=== PATIENT | female | born 1990 | race Hispanic/Latino ===

== ENCOUNTER 2020-04-04 21:57 | Emergency (ER) | payer OTHER ==
[~2020-04-04] VITALS: Ht 157.5 cm; Wt 58.5 kg
[2020-04-04] MEDS ORDERED: CYCLOBENZAPRINE HCL 10 MG TAB PO ONE (23:00)
[2020-04-04] MEDS ORDERED: CYCLOBENZAPRINE HCL 10 MG TAB ONE (23:18)
[2020-04-04] MEDS ORDERED: CYCLOBENZAPRINE5 MG PO (23:56)
== END 2020-04-05 00:35 | disposition home or self-care (01) ==
LOC: FSED 22:58
DX: M54.16 Radiculopathy, lumbar region (principal); Z33.1 Pregnant state, incidental
CPT/HCPCS: 81003; 81025; 99283

== ENCOUNTER 2020-12-16 21:47 | Emergency (ER) | payer SELFPAY ==
[~2020-12-16] VITALS: Ht 157.5 cm; Wt 69.4 kg
[~2020-12-16 21:47] MED LIST: CYCLOBENZAPRINE5 MG PO
== END 2020-12-16 22:25 | disposition home or self-care (01) ==
LOC: FSED 22:19
DX: M79.89 Other specified soft tissue disorders (principal); W49.04XA Ring or other jewelry causing external constriction, initial encounter; Y92.008 Other place in unspecified non-institutional (private) residence as the place of occurrence of the external cause
CPT/HCPCS: 99282

== ENCOUNTER 2022-01-21 14:32 | Emergency (ER) | payer OTHER ==
[~2022-01-21] VITALS: Ht 157.5 cm; Wt 62.3 kg
[2022-01-21] MEDS ORDERED: SPRINTEC1 EACH PO (17:17)
== END 2022-01-21 17:32 | disposition home or self-care (01) ==
LOC: FSED 16:03
DX: N93.8 Other specified abnormal uterine and vaginal bleeding (principal); R10.30 Lower abdominal pain, unspecified; N92.0 Excessive and frequent menstruation with regular cycle
CPT/HCPCS: 80053; 81003; 81025; 85025; 99283

== ENCOUNTER 2024-02-03 10:03 | Emergency (ER) | payer OTHER ==
[~2024-02-03] VITALS: Ht 157.5 cm; Wt 61.7 kg
[~2024-02-03 10:03] MED LIST changes: +CEFUROXIME500 MG PO; +ONDANSETRON ODT4 MG PO; +SPRINTEC1 EACH PO
[2024-02-03] MEDS ORDERED: VALTREX1000 MG PO (10:29)
[2024-02-03] MEDS: ACETAMINOPHEN 325 MG TAB PO ONE (11:19)
[2024-02-03] MEDS: KETOROLAC TROMETHAMINE 30 MG/ML VIAL IV ONE (11:19)
[2024-02-03] MEDS: SODIUM CHLORIDE 0.9% 1000ML 1,000 ML IV ONE (11:20)
[2024-02-03] MEDS: ONDANSETRON HCL INJ 2MG/ML 2ML 2 MG/ML VIAL IV STA (11:30)
[2024-02-03] MEDS ORDERED: IOPAMIDOL 370 MG/ML 100 ML INFUS..BTL INJ ONE (11:48)
[2024-02-03 14:08] VITALS: PULSE 83; RESP 14; TEMP 97.6; O2SAT 97
== END 2024-02-03 14:10 | disposition home or self-care (01) ==
LOC: FSED 10:07
DX: R10.30 Lower abdominal pain, unspecified (principal); B34.9 Viral infection, unspecified; M54.50 Low back pain, unspecified; K76.0 Fatty (change of) liver, not elsewhere classified; M79.10 Myalgia, unspecified site; Z11.52 Encounter for screening for COVID-19
CPT/HCPCS: 0223U; 74177; 80048; 80076; 81003; 81025; 85025; 87400; 96374; 96375; 99284; J1885; J2405; J7030; Q9967